=== PATIENT | female | born 1975 | race African-American/Black ===

== ENCOUNTER 2017-04-23 14:30 | Emergency (ER) | payer BC ==
[~2017-04-23] VITALS: Ht 162.6 cm; Wt 77.1 kg
[2017-04-23] MEDS ORDERED: FLEXERIL PO (15:00)
[2017-04-23 15:29] VITALS: BP 135/88
== END 2017-04-23 15:30 | disposition home or self-care (01) ==
LOC: ER 14:30
DX: S00.83XA Contusion of other part of head, initial encounter (principal); V43.92XA Unspecified car occupant injured in collision with other type car in traffic accident, initial encounter; Y93.89 Activity, other specified; Y92.89 Other specified places as the place of occurrence of the external cause; Y99.8 Other external cause status

== ENCOUNTER 2017-04-27 18:17 | Emergency (ER) | payer BC ==
[~2017-04-27] VITALS: Ht 162.6 cm; Wt 72.6 kg
[~2017-04-27 18:17] MED LIST: FLEXERIL PO
[2017-04-27 19:41] VITALS: BP 125/95
== END 2017-04-27 19:41 | disposition home or self-care (01) ==
LOC: ER 18:17
DX: R51 Headache (principal)